=== PATIENT | female | born 1950 | race Two or more races ===

== ENCOUNTER 2023-01-25 07:26 | Day surgery (SDC) | payer OTHER | END 2023-01-25 12:20 | disposition home or self-care (01) | LOC: AMB-ENDOS 07:26 | PROVIDERS: ATTEND Surgery | DX: K57.30 Diverticulosis of large intestine without perforation or abscess without bleeding (principal); R10.32 Left lower quadrant pain; K64.4 Residual hemorrhoidal skin tags; K62.89 Other specified diseases of anus and rectum; R19.4 Change in bowel habit ==

== ENCOUNTER 2023-05-28 11:56 | Inpatient (IN) | payer OTHER ==
[~2023-05-28] VITALS: Ht 157.5 cm; Wt 90.7 kg
[2023-05-29] MEDS ORDERED: SINGULAIR10 MG PO (10:44)
[2023-05-29] MEDS ORDERED: ZYRTEC10 M3 PO (10:44)
[2023-05-29] MEDS ORDERED: GLIPIZIDE XL10 MG PO (10:44)
[2023-05-29] MEDS ORDERED: XELPROS2.5 ML OP (10:45)
[2023-05-29] MEDS ORDERED: SIMBRINZA 1%-0.28 M1 OP (10:45)
[2023-05-29] MEDS ORDERED: OMEPRAZOLE-BIC1 EAC1 PO (10:45)
[2023-05-29] MEDS ORDERED: ZESTRIL20 MG PO (10:46)
[2023-06-04] MEDS ORDERED: AMOX-CLAV 875-1 EACH PO (12:44)
[2023-06-04] MEDS ORDERED: PERCOCET 5-3251 EACH PO (12:44)
[2023-06-04] MEDS ORDERED: MEDROLPACK PO (12:44)
[2023-06-04] MEDS ORDERED: COLACE100 MG PO (12:45)
[2023-06-04] MEDS ORDERED: NEURONTIN800 MG PO (12:45)
== END 2023-06-06 16:58 | DRG 455 ==
LOC: SURG 06-04 06:02 → O/R 06-04 06:02 → SURG 06-04 09:30 → O/R 06-05 14:46 → SURG 06-05 14:49 → SURH 06-05 18:06
PROVIDERS: ADMIT Orthopaedic Surgery Orthopaedic Surgery of the Spine; ATTEND Orthopaedic Surgery Orthopaedic Surgery of the Spine
PROC: 0SG0071 Fusion of Lumbar Vertebral Joint with Autologous Tissue Substitute, Posterior Approach, Posterior Column, Open Approach (ICD-10-PCS; 2023-06-04)
PROC: 0ST20ZZ Resection of Lumbar Vertebral Disc, Open Approach (ICD-10-PCS; 2023-06-04)
PROC: 0QB30ZZ Excision of Left Pelvic Bone, Open Approach (ICD-10-PCS; 2023-06-04)
PROC: 07DR0ZZ Extraction of Iliac Bone Marrow, Open Approach (ICD-10-PCS; 2023-06-04)
PROC: 4A12X4Z Monitoring of Cardiac Electrical Activity, External Approach (ICD-10-PCS; 2023-06-04)
PROC: XRGB0R7 Fusion of Lumbar Vertebral Joint using Custom-Made Anatomically Designed Interbody Fusion Device, Open Approach, New Technology Group 7 (ICD-10-PCS; principal; 2023-06-04 14:00)
DX: M48.062 Spinal stenosis, lumbar region with neurogenic claudication (principal); M41.56 Other secondary scoliosis, lumbar region; M51.36 Other intervertebral disc degeneration, lumbar region; I10 Essential (primary) hypertension; E11.9 Type 2 diabetes mellitus without complications; E03.9 Hypothyroidism, unspecified; Z79.84 Long term (current) use of oral hypoglycemic drugs